=== PATIENT | male | born 1960 | race Caucasian/White ===

== ENCOUNTER 2022-01-01 16:53 | Emergency (ER) | payer OTHER | END 2022-01-01 18:55 | disposition home or self-care (01) | LOC: ERS 16:53 | DX: S09.90XA Unspecified injury of head, initial encounter (principal); S63.502A Unspecified sprain of left wrist, initial encounter; M25.512 Pain in left shoulder; V43.52XA Car driver injured in collision with other type car in traffic accident, initial encounter | CPT/HCPCS: 70450 ==

== ENCOUNTER 2022-03-11 14:32 | Outpatient (CLI) | payer BC | END 2022-03-11 14:33 | disposition home or self-care (01) | LOC: TBSIIMAG 14:32 | PROVIDERS: ATTEND Orthopaedic Surgery Hand Surgery | DX: S63.392A Traumatic rupture of other ligament of left wrist, initial encounter (principal); S63.391A Traumatic rupture of other ligament of right wrist, initial encounter; S61.412A Laceration without foreign body of left hand, initial encounter; S61.411A Laceration without foreign body of right hand, initial encounter; M25.832 Other specified joint disorders, left wrist; M19.041 Primary osteoarthritis, right hand; M67.834 Other specified disorders of tendon, left wrist ==

== ENCOUNTER 2022-05-29 08:41 | Outpatient (CLI) | payer BC ==
[2022-05-29 10:19] LABS: #Basophils 0.1 10x3/uL (0.0-0.2); #Eosinphils 0.1 10x3/uL (0.0-0.5); #Monocytes 0.4 10x3/uL (0.0-1.1); #Neutrophils 1.4 10x3/uL (1.5-8.4); %Basophils 1.9 % (0.0-2.0); %Eosinophils 2.8 % (0.0-6.0); %Lymphocytes 38.7 % (18.0-47.0); %Monocytes 12.1 % (0.0-10.0); %Neutrophils 44.2 % (40.0-75.0); Hemoglobin 15.2 g/dL (13.5-17.5); Mean Corpuscular HGB CONC 34.5 g/dL (32.0-36.0); Mean Corpuscular Hemoglobin 31.9 pg (27.0-33.0); Mean Corpuscular Volume 92.2 fl (81.2-95.1); Mean Platelet Volume 9.4 fl (7.4-10.4); Platelet Count 261 10x3/uL (150-450); Red Blood Cell (RBC) Count 4.77 10x6/uL (4.32-5.72); White Blood Cell (WBC) Count 3.2 10x3/uL (3.5-10.5)
== END 2022-05-29 08:42 | disposition home or self-care (01) ==
LOC: LABBT 08:41
PROVIDERS: ATTEND Orthopaedic Surgery Hand Surgery
DX: Z01.812 Encounter for preprocedural laboratory examination (principal); M19.132 Post-traumatic osteoarthritis, left wrist; S63.8X2A Sprain of other part of left wrist and hand, initial encounter
CPT/HCPCS: 85025